=== PATIENT | female | born 2000 | race Caucasian/White ===

== ENCOUNTER 2020-04-12 10:28 | Emergency (ER) | payer BC ==
[2020-04-12 10:58] VITALS: O2SAT 99
[2020-04-12] MEDS ORDERED: Zofran 4 MG/2 ML VIAL IV ONE (11:08)
[2020-04-12] MEDS ORDERED: Sodium Chloride 0.9% 1000 ML 1,000 ML IV STA (11:08)
[2020-04-12] MEDS ORDERED: MORPHINE SULFATE 4 MG INJ IV ONE (11:08)
--- NOTE | 2020-04-12 11:42 | ERPHSYRPT ---
- History of Present Illness Time Seen by Provider: 04/12/20 10:45 Historian: patient Exam Limitations: no limitations Patient Subjective Stated Complaint: " I am 17 weeks and I'm freaking out I hope I'm not having a miscarriage. I have had sharp stabbing pain in my left upper side that goes to my back. It was coming and going last night and now it won't go away." Triage Nursing Assessment: Pt presents to ER with complaints of LUQ pain that radiates to left side ribs and left mid back since last night. States pain is sharp/stabbing and constant right now rating pain 8/10 scale. States is 17 weeks with first , goes to [facility] in [place] and hasn't seen him in a while and doesn't remember his name. Is taking pre-soren vitamins. Pt is alert and oriented x 3. Denies any vaginal discharge or bleeding. Denies painful urination. Resp are easy but appears slightly anxious. Lungs clear and equal throughout. Abd soft and nontender. Pt is very slinder, abdomen is flat in appearance. Skin is pink, warm, and dry. Physician History: 19 years old female 1 para 0 at 17 weeks gestation presented in the ER with chief complaint of left flank pain since last night, sudden onset, sharp stabbing, moderate to severe intensity without any significant aggravating or relieving factor and associated with one episode of nonprojectile, nonbilious vomiting this morning. Denies any vaginal bleeding or discharge. Denies any urinary symptoms. No fever or chills reported. Patient is concerned about her baby/miscarriage. Timing/Duration: yesterday, sudden, worse Activities at Onset: rest Quality: sharpness, stabbing Abdominal Pain Onset Location: LUQ, flank Pain Radiation: no radiation Severity of Pain-Max: moderate Severity of Pain-Current: moderate Modifying Factors: Improves With: nothing Associated Symptoms: nausea, vomiting Previous symptoms: no prior history Allergies/Adverse Reactions: No Known Drug Allergies Allergy (Verified 04/12/20 10:59) Home Medications: Vits W-Ca,Fe,FA(<1Mg) [] 1 tab PO DAILY 04/12/20 [History] Hx Tetanus, Diphtheria Vaccination/Date Given: Yes Hx Influenza Vaccination/Date Given: Yes Hx Pneumococcal Vaccination/Date Given: No Immunizations Up to Date: Yes Travel Risk - International Travel Have you traveled outside of the country in past 3 weeks: No - Coronavirus Screening Close contact with a COVID-19 positive Pt in past 14-21 Days: No - Review of Systems Constitutional: No Symptoms Eyes: No Symptoms Ears, Nose, & Throat: No Symptoms Respiratory: No Symptoms Cardiac: No Symptoms Abdominal/Gastrointestinal: Abdominal Pain, Nausea, Vomiting Genitourinary Symptoms: No Symptoms Musculoskeletal: No Symptoms Skin: No Symptoms Neurological: No Symptoms Psychological: No Symptoms Endocrine: No Symptoms Hematologic/Lymphatic: No Symptoms Immunological/Allergic: No Symptoms - Past Medical History Pertinent Past Medical History: No - Past Surgical History Past Surgical History: No - Social History Smoking Status: Never smoker Exposure to second hand smoke: No Drug Use: none Patient Lives Alone: No - Female History Hx Last Menstrual Period: 12/28/2019 Hx Now: Yes Expected Date of Delivery: 09/18/20 Gestational Age: 17 weeks - Nursing Vital Signs Nursing Vital Signs: Initial Vital Signs Temperature 98.1 F 04/12/20 10:46 Pulse Rate 89 04/12/20 10:46 Respiratory Rate 16 04/12/20 10:46 Blood Pressure 125/66 04/12/20 10:46 O2 Sat by Pulse Oximetry 99 04/12/20 10:46 Pain Scale Pain Intensity 2 - Physical Exam General Appearance: no apparent distress Eye Exam: eyes nml inspection Ears, Nose, Throat Exam: normal ENT inspection, pharynx normal Neck Exam: normal inspection, supple, full range of motion Respiratory Exam: normal breath sounds, lungs clear Cardiovascular Exam: regular rate/rhythm, normal heart sounds Gastrointestinal/Abdomen Exam: soft, normal bowel sounds, tenderness (Left flank ) Pelvic Exam: not done Back Exam: normal inspection, normal range of motion, CVA tenderness Extremity Exam: normal inspection, normal range of motion Neurologic Exam: alert, oriented x 3, cooperative Skin Exam: normal color, warm, dry SpO2 Interpretation: normal SpO2: 99 O2 Delivery: Room Air - Course Nursing assessment & vital signs reviewed: Yes Ordered Tests: Active Orders 24 hr Category Date Time Status IV Insertion STAT Care 04/12/20 11:08 Active ABDOMINAL-LIMITED [US] Stat Exams 04/12/20 11:39 Completed OB >14 WKS 1st GESTATION [US] Stat Exams 04/12/20 11:10 Completed AMYLASE Stat Lab 04/12/20 12:14 Completed CBC W DIFF Stat Lab 04/12/20 12:14 Completed CMP Stat Lab 04/12/20 12:14 Completed CULTURE,URINE Stat Lab 04/12/20 12:14 Received LIPASE Stat Lab 04/12/20 12:14 Completed UA W/RFX UR CULTURE Stat Lab 04/12/20 12:14 Completed Medication Summary Discontinued Medications Generic Name Dose Route Start Last Admin Trade Name Markq PRN Reason Stop Dose Admin Sodium Chloride 1,000 mls @ 999 mls/hr 04/12/20 11:08 04/12/20 13:55 Sodium Chloride 0.9% 1000 Ml IV 04/12/20 12:08 Infused .Q1H1M STA Infusion Sodium Chloride Confirm 04/12/20 11:55 Sodium Chloride 0.9% 1000 Ml Administered 04/12/20 11:56 Dose 1,000 mls @ ud .ROUTE .STK-MED ONE Morphine Sulfate 4 mg 04/12/20 11:08 04/12/20 12:15 Morphine Sulfate 4 Mg Inj IV 04/12/20 11:09 4 mg STAT ONE Administration Morphine Sulfate Confirm 04/12/20 11:55 Morphine Sulfate 4 Mg Inj Administered 04/12/20 11:56 Dose 4 mg .ROUTE .STK-MED ONE Ondansetron HCl 4 mg 04/12/20 11:08 04/12/20 12:13 Zofran 4 Mg/2 Ml Vial IV 04/12/20 11:09 4 mg STAT ONE Administration Ondansetron HCl Confirm 04/12/20 11:54 Zofran 4 Mg/2 Ml Vial Administered 04/12/20 11:55 Dose 4 mg .ROUTE .STK-MED ONE Lab/Rad Data: Laboratory Result Diagrams 04/12/20 12:14 04/12/20 12:14 Laboratory Results 04/12/20 04/12/20 04/12/20 Range/Units 12:14 12:14 12:14 WBC 13.4 H (4.0-10.5) K/mm3 RBC 4.16 (4.1-5.4) M/mm3 Hgb 13.4 (12.0-16.0) gm/dl Hct 39.5 (35-47) % MCV 95.0 (78-100) fl MCH 32.2 H (26-32) pg MCHC 33.9 (32-36) g/dl RDW 13.0 (11.5-14.0) % Plt Count 250 (150-450) K/mm3 MPV 9.8 (7.5-11.0) fl Gran % 84.8 H (36.0-66.0) % Eos # (Auto) 0.06 (0-0.5) Absolute Lymphs (auto) 1.59 (1.0-4.6) Absolute Monos (auto) 0.37 (0.0-1.3) Lymphocytes % 11.9 L (24.0-44.0) % Monocytes % 2.8 (0.0-12.0) % Eosinophils % 0.4 (0.00-5.0) % Basophils % 0.1 (0.0-0.4) % Absolute Granulocytes 11.35 H (1.4-6.9) Basophils # 0.02 (0-0.4) Sodium 137 (137-145) mmol/L Potassium 4.1 (3.5-5.1) mmol/L Chloride 105 (98-107) mmol/L Carbon Dioxide 23 (22-30) mmol/L Anion Gap 13.6 (5-15) MEQ/L BUN 4 L (7-17) mg/dL Creatinine 0.37 L (0.52-1.04) mg/dL Estimated GFR > 60.0 ML/MIN Glucose 87 (74-106) mg/dL Calcium 8.9 (8.4-10.2) mg/dL Total Bilirubin 0.40 (0.2-1.3) mg/dL AST 16 (14-36) U/L ALT 11 (0-35) U/L Alkaline Phosphatase 50 (38-126) U/L Serum Total Protein 7.2 (6.3-8.2) g/dL Albumin 4.1 (3.5-5.0) g/dL Amylase 81 (30-110) U/L Lipase 25 (23-300) U/L Urine Color YELLOW (YELLOW) Urine Appearance CLOUDY (CLEAR) Urine pH 8.0 (5-6) Ur Specific Bliss 1.016 (1.005-1.025) Urine Protein NEGATIVE (Negative) Urine Ketones SMALL (NEGATIVE) Urine Blood NEGATIVE (0-5) Dinh/ul Urine Nitrite NEGATIVE (NEGATIVE) Urine Bilirubin NEGATIVE (NEGATIVE) Urine Urobilinogen NEGATIVE (0-1) mg/dL Ur Leukocyte Esterase NEGATIVE (NEGATIVE) Urine WBC (Auto) NONE (0-5) /HPF Urine RBC (Auto) NONE (0-2) /HPF U Epithel Cells (Auto) RARE (FEW) /HPF Urine Bacteria (Auto) NONE (NEGATIVE) /HPF Urine Mucus (Auto) SLIGHT (NEGATIVE) /HPF Urine Culture Reflexed ORDERED SEPARATELY (NO) Urine Glucose NEGATIVE (NEGATIVE) mg/dL - Progress Progress: improved, re-examined Counseled pt/family regarding: lab results, diagnosis, need for follow-up, rad results - Departure Departure Disposition: Home Clinical Impression: Flank pain in patient Condition: Stable Critical Care Time: No Referrals: MARIO CROWELL [Primary Care Provider] - (1-2 days for re evaluation) Instructions: Round Ligament Pain Additional Instructions: Take Tylenol as needed. Drink plenty of fluids. Follow-up with your OB and primary care for reevaluation. Return to ER for any worsening.
[2020-04-12] MEDS ORDERED: Zofran 4 MG/2 ML VIAL ONE (11:54)
[2020-04-12] MEDS ORDERED: MORPHINE SULFATE 4 MG INJ ONE (11:55)
[2020-04-12] MEDS ORDERED: Sodium Chloride 0.9% 1000 ML 1,000 ML ONE (11:55)
[2020-04-12 12:17] LABS: Absolute Neutrophil Ct (ANC) 11.35 (1.4-6.9); BASOPHIL % 0.1 % (0.0-0.4); Basophil (Absolute #) 0.02 (0-0.4); Eosinophil % 0.4 % (0.00-5.0); Eosinophil (Absolute #) 0.06 (0-0.5); Hematocrit 39.5 % (35-47); Hemoglobin 13.4 gm/dl (12.0-16.0); Lymphocyte (Absolute #) 1.59 (1.0-4.6); Lymphocytes % 11.9 % (24.0-44.0); Mean Corpuscular Hemoglobin 32.2 pg (26-32); Mean Corpuscular Hgb Concent. 33.9 g/dl (32-36); Mean Platelet Volume 9.8 fl (7.5-11.0); Monocyte (Absolute #) 0.37 (0.0-1.3); Monocytes % 2.8 % (0.0-12.0); Neutrophil % 84.8 % (36.0-66.0); Platelet Count 250 K/mm3 (150-450); Red Blood Count 4.16 M/mm3 (4.1-5.4); White Blood Count 13.4 K/mm3 (4.0-10.5)
[2020-04-12 12:25] LABS: ALBUMIN 4.1 g/dL (3.5-5.0); ALKALINE PHOSPHATASE 50 U/L (38-126); AMYLASE 81 U/L (30-110); ANION GAP 13.6 MEQ/L (5-15); Appearance CLOUDY (CLEAR); BLOOD UREA NITROGEN 4 mg/dL (7-17); Bilirubin NEGATIVE (NEGATIVE); Blood NEGATIVE Ery/ul (0-5); CHLORIDE 105 mmol/L (98-107); Calcium 8.9 mg/dL (8.4-10.2); Carbon Dioxide 23 mmol/L (22-30); Creatinine 1 0.37 mg/dL (0.52-1.04); Epithelial Cells RARE /HPF (FEW); Glucose 87 mg/dL (74-106); Glucose NEGATIVE (NEGATIVE); Ketones SMALL (NEGATIVE); LIPASE 25 U/L (23-300); Leukocyte Esterase NEGATIVE (NEGATIVE); Mucus SLIGHT /HPF (NEGATIVE); Nitrite NEGATIVE (NEGATIVE); Potassium 4.1 mmol/L (3.5-5.1); Protein,Urine Dip NEGATIVE (Negative); SGOT/AST 16 U/L (14-36); SGPT/ALT 11 U/L (0-35); SODIUM 137 mmol/L (137-145); Specific Gravity 1.016 (1.005-1.025); Total Protein 7.2 g/dL (6.3-8.2); Urobilinogen NEGATIVE mg/dL (0-1)
[2020-04-12 13:13] VITALS: BP 126/75; PULSE 82
--- NOTE | 2020-04-12 13:13 | XRAY ---
Exam: OB ultrasound greater than 14 weeks from 04/12/2020. Comparison: None. Indication: Left flank pain. Findings: Multiple transabdominal images reveal a single live intrauterine fetus in the breech lie. The placenta is posterior. No findings to suggest placenta previa or abruption are seen. The amniotic fluid index measures 14.66 cm which is within normal limits. biometry: Biparietal diameter measures 14.18 cm consistent with a gestational age of 18 weeks, 5 days. Head circumference measures 15.15 cm consistent with a gestational age of 18 weeks, 1 day. Abdominal circumference measures 13.26 cm consistent with a gestational age of 18 weeks, 5 days. Femur length measures 2.9 cm consistent with a gestational age of 18 weeks, 6 days. Gestational age based on all of the above measurements averages 18 weeks, 4 days with an estimated due date of 09/09/2020. Estimated due date by dates is given as 09/18/2020. Estimated weight is 255.99 g plus or -38.4 g (9 ounces plus or -1 ounce). heart rate measures 155 bpm. A detailed anatomy scan was not performed. On the images supplied, I see no gross abnormality. Impression: 1. 18 week, 4 day single live intrauterine fetus in the breech lie. heart rate measured 155 bpm. 2. The placenta is posterior. There is no evidence of placenta previa or abruption. 3. The amount of amniotic fluid appears unremarkable with an amniotic fluid index of 14.66 cm.
--- NOTE | 2020-04-12 13:19 | XRAY ---
Exam: Limited abdominal ultrasound from 04/12/2020. Comparison: None. Indication: 19-year-old female who is in the second trimester of her and complains of left flank pain. Consider left-sided hydronephrosis or pyelonephritis. Findings: Transverse and longitudinal images of the left kidney were obtained as well as some color flow images. The left kidney measured 12.2 cm in length and 5.2 cm x 4.2 cm in cross section. Left renal cortical thickness and echogenicity appear unremarkable. There is no evidence of hydronephrosis or definite left renal mass. Some adjacent bowel gas is seen. Posterior shadowing from the patient's ribs is seen on some of the images. Impression: 1. I see no evidence of left-sided hydronephrosis. No other definite sonographic abnormality of the maternal left kidney is seen. Correlate clinically.
== END 2020-04-12 14:17 | disposition home or self-care (01) ==
LOC: ED 10:28
DX: R10.12 Left upper quadrant pain (principal); Z3A.17 17 weeks gestation of pregnancy
CPT/HCPCS: 36415; 76705; 76805; 80053; 81001; 82150; 83690; 85025; 87086; 96360; 96374; 96375; 99284; J2270; J2405

== ENCOUNTER 2020-06-26 10:14 | Observation (INO) | payer BC ==
[2020-06-26 10:57] VITALS: BP 131/87; PULSE 74
[2020-06-26 11:31] LABS: Absolute Neutrophil Ct (ANC) 8.95 (1.4-6.9); BASOPHIL % 0.2 % (0.0-0.4); Basophil (Absolute #) 0.02 (0-0.4); Eosinophil % 1.8 % (0.00-5.0); Eosinophil (Absolute #) 0.21 (0-0.5); Hematocrit 37.6 % (35-47); Hemoglobin 12.2 gm/dl (12.0-16.0); Lymphocyte (Absolute #) 1.89 (1.0-4.6); Lymphocytes % 16.4 % (24.0-44.0); Mean Cell Volume 97.2 fl (78-100); Mean Corpuscular Hemoglobin 31.5 pg (26-32); Mean Corpuscular Hgb Concent. 32.4 g/dl (32-36); Mean Platelet Volume 10.3 fl (7.5-11.0); Monocyte (Absolute #) 0.45 (0.0-1.3); Monocytes % 3.9 % (0.0-12.0); Neutrophil % 77.7 % (36.0-66.0); Platelet Count 229 K/mm3 (150-450); Red Blood Count 3.87 M/mm3 (4.1-5.4); White Blood Count 11.5 K/mm3 (4.0-10.5)
[2020-06-26] MEDS: Lactated Ringers 1,000 ML IV ONE ×2 (11:33→12:50)
[2020-06-26] MEDS ORDERED: TYLENOL EXTRA STRENGTH 500 MG PO ONE (11:49)
[2020-06-26 11:51] LABS: Appearance CLEAR (CLEAR); Bilirubin NEGATIVE (NEGATIVE); Blood NEGATIVE Ery/ul (0-5); Epithelial Cells RARE /HPF (FEW); Glucose NEGATIVE (NEGATIVE); Ketones NEGATIVE (NEGATIVE); Leukocyte Esterase NEGATIVE (NEGATIVE); Mucus SLIGHT /HPF (NEGATIVE); Nitrite NEGATIVE (NEGATIVE); Protein,Urine Dip NEGATIVE (Negative); Urobilinogen NEGATIVE mg/dL (0-1)
[2020-06-26] MEDS ORDERED: BRETHINE 1 MG/ML SQ ONE (12:09)
[2020-06-26] MEDS ORDERED: Nubain 10 MG/ML IV ONE (12:15)
[2020-06-26 12:22] LABS: Amphetamine,Urine NEGATIVE (NEGATIVE); Barbiturate,Urine NEGATIVE (NEGATIVE); Benzodiazepine,Urine POSITIVE (NEGATIVE); Cocaine,Urine NEGATIVE (NEGATIVE); Methadone,Urine NEGATIVE (NEGATIVE); Opiate,Urine NEGATIVE (NEGATIVE); PCP,Urine NEGATIVE (NEGATIVE); THC,Urine NEGATIVE (NEGATIVE)
[2020-06-26] MEDS ORDERED: Nubain 10 MG/ML ONE (12:25)
[2020-06-26] MEDS ORDERED: Celestone Soluspan 6MG/ML ONE (12:25)
[2020-06-26] MEDS ORDERED: Celestone Soluspan 6MG/ML IM SCH (12:30)
[2020-06-26] MEDS ORDERED: OMNIPEN 2 GM*** 2 G in Sodium Chloride 100ML MINI-BAG PLUS 100 ML IV ONE (12:42)
[2020-06-26] MEDS ORDERED: Magnesium Sulfate 40 Gm/1000 Ml H2O Premix*** 1,000 ML IV SCH (12:45)
[2020-06-26] MEDS ORDERED: Lactated Ringers 1,000 ML IV ONE (12:46)
[2020-06-26 13:31] LABS: ALBUMIN 3.4 g/dL (3.5-5.0); ALKALINE PHOSPHATASE 76 U/L (38-126); ANION GAP 9.4 MEQ/L (5-15); BLOOD UREA NITROGEN 3 mg/dL (7-17); CHLORIDE 107 mmol/L (98-107); Calcium 8.3 mg/dL (8.4-10.2); Carbon Dioxide 21 mmol/L (22-30); Creatinine 1 0.31 mg/dL (0.52-1.04); EST GLOMERULAR FILTRATION RATE > 60.0 ML/MIN; Glucose 87 mg/dL (74-106); Potassium 3.7 mmol/L (3.5-5.1); SGOT/AST 25 U/L (14-36); SGPT/ALT 12 U/L (0-35); SODIUM 134 mmol/L (137-145); Total Protein 6.3 g/dL (6.3-8.2)
--- NOTE | 2020-06-26 14:28 | XRAY ---
Indication: labor. Evaluate cervical length. Two-dimensional OB ultrasound performed. Comparison: April 12, 2020. Again there is a single viable intrauterine now in cephalic presentation. Normal four-chamber heart with heart rate 154 BPM. Normal three-vessel cord and cord insertion. Visualized spine, kidneys, and bladder are unremarkable. Again posterior fundal placenta without abruption/previa. Cervical length is 3.2 cm. BPD measures 7.50 cm corresponding to 30 weeks 1 day. HC measures 26.88 cm corresponding to 29 weeks 1 day. AC measures 22.43 cm corresponding to 26 weeks 6 days. FL measures 4.96 cm corresponding to 26 weeks 5 days. Estimated weight 2 lbs. 5 oz., +/-6 ounces. Approximately 14 percentile. MERCY is 14 cm. Impression: Again single viable intrauterine with mean gestational age 28 weeks 2 days. Normal progression of . No new/acute findings.
== END 2020-06-26 14:50 | disposition short-term general hospital (02) ==
LOC: MED SURG 10:14
PROVIDERS: ADMIT Family Medicine; ATTEND Family Medicine
DX: O60.03 Preterm labor without delivery, third trimester (principal); Z3A.28 28 weeks gestation of pregnancy
CPT/HCPCS: 36415; 76805; 80053; 80307; 81001; 85025; 87081; 96372; G0378; J0290; J0702; J2300; A9270-GY